=== PATIENT | male | born 1980 | race American Indian/Alaskan Native ===

== ENCOUNTER 2019-01-26 14:15 | Emergency (ER) | payer OTHER ==
[2019-01-26 14:43] VITALS: BP 122/85
--- NOTE | 2019-01-26 14:47 | Emergency Department Report ---
Chief Complaint: Urogenital-Male Stated Complaint: UNABLE TO URINATE/LOWER BACK PAIN Time Seen by Provider: 01/26/19 14:43 - HPI History of Present Illness: This is a 39 y.o. male that presents to the ER with low back pain and urinary retention for 1-2 days. Also complains of low back pain. - Exam Vital Signs: Vital Signs 01/26/19 14:41 Temperature 98.8 F Pulse Rate 77 Respiratory 22 Rate Blood Pressure 122/85 O2 Sat by Pulse 95 Oximetry MSE screening note: Focused history and physical exam performed. Due to findings the following was ordered: Urinalysis ACC for further evaluation. ED Disposition for MSE Condition: Stable
[2019-01-26] MEDS ORDERED: PYRIDIUM PO ONE (15:32)
[2019-01-26] MEDS ORDERED: IBUPROFEN PO ONE (15:32)
[2019-01-26 16:31] LABS: Bacteria,Urine 1+ /HPF (Negative); Bilirubin,Urine NEG (Negative); Blood,Urine SM (Negative); Color,Urine Yellow (Yellow); Mucus,Urine FEW /HPF; Protein,Urine <15 mg/dL mg/dL (Negative); Urobilinogen,Urine < 2.0 mg/dL (<2.0)
[2019-01-26] MEDS ORDERED: TORADOL IV ONE (16:44)
[2019-01-26] MEDS ORDERED: MORPHINE IV ONE (16:44)
[2019-01-26 17:12] LABS: Basophils # (Auto) 0.1 K/mm3 (0.0-0.1); Basophils % (Auto) 0.9 % (0.0-1.8); Eosinophils # (Auto) 0.2 K/mm3 (0.0-0.4); Eosinophils % (Auto) 1.8 % (0.0-4.3); Hemoglobin 15.8 gm/dl (11.8-15.2); Lymphocytes # (Auto) 2.6 K/mm3 (1.2-5.4); Lymphocytes % (Auto) 23.6 % (13.4-35.0); Mean Corpuscular HGB Conc 35 % (32-34); Mean Corpuscular Volume 96 fl (84-94); Monocytes # (Auto) 1.1 K/mm3 (0.0-0.8); Monocytes % (Auto) 10.2 % (0.0-7.3); Platelet Count 299 K/mm3 (140-440); Red Blood Count 4.81 M/mm3 (3.65-5.03); Red Cell Distribution Width 13.3 % (13.2-15.2)
--- NOTE | 2019-01-26 17:23 | XRay Report ---
PROCEDURE: XR ABDOMEN 1V AP TECHNIQUE: Frontal views of the abdomen and pelvis HISTORY: constipation COMPARISONS: None FINDINGS: The bowel gas pattern is nonobstructive with air in nondistended loops of small bowel and colon. There is a mild to moderate amount of stool in the ascending and proximal transverse colon. There is no evidence of pneumoperitoneum nor organomegaly. The bony structures are notable for degenerative change of the hip joints bilaterally, left greater t clemente right with joint space loss, subchondral sclerosis and subchondral cyst formation on the left. IMPRESSION: 1. No plain film evidence of an acute intra-abdominal process. If there is a clinical concern of an acute intra-abdominal process, CT imaging may be helpful. 2. Mild to moderate amount of stool in the ascending and proximal transverse colon. 3. Degenerative change hip joints bilaterally. This document is electronically signed by Adilia Angelo MD., January 26 2019 05:21:21 PM ET
[2019-01-26 17:24] LABS: Calcium 9.6 mg/dL (8.4-10.2)
--- NOTE | 2019-01-26 18:00 | Cat Scan Report ---
PROCEDURE: CT ABDOMEN PELVIS WO CON TECHNIQUE: Axial helical imaging through the abdomen and pelvis with sagittal and coronal reformatte d images obtained. HISTORY: suprapubic pain hematuria COMPARISONS: None FINDINGS: The lung bases are without infiltrate, pneumothorax or pleural fluid collection. The heart appears to be normal size. The liver, spleen, pancreas and adrenal glands are unremarkable. The gallbladder is mildly distended and unremarkable. The right kidney is unremarkable. There is mild to moderate left hydronephrosis with left hydroureter. There is an approximately 2.5 mm x 2.4 mm x 2.7 mm obstructing stone in the region of the left ureterovesicular junction. The urinary bladder is mildly distended and otherwise unremarkable. The bowel is normal caliber. The appendix is normal caliber. There is a mild to moderate amount of stool in the ascending and transverse colon. There is no evidence of pneumoperitoneum or free fluid. The abdominal aorta is normal caliber. There are mildly prominent bilateral inguinal and external iliac chain lymph nodes. These are nonspec ific in appearance but are most likely inflammatory in nature. The prostate gland appears to be upper limits of normal size to mildly enlarged and contains calcific ations. The bony structures are notable for degenerative change of the hip joints bilaterally, left greater t clemente right, with marked loss of joint space on the left with subchondral sclerosis and cyst formation. IMPRESSION: 1. Mild to moderate left hydronephrosis with left hydroureter with approximately 2.7 mm obstructing s tone in the region of the left ureterovesicular junction. 2. Degenerative change hip joints bilaterally, left greater than right. This document is electronically signed by Adilia Angelo MD., January 26 2019 05:58:43 PM ET
--- NOTE | 2019-01-26 18:55 | Emergency Department Report ---
ED General Adult HPI - General Chief complaint: Urogenital-Male Stated complaint: UNABLE TO URINATE/LOWER BACK PAIN Time Seen by Provider: 01/26/19 14:43 Source: patient Mode of arrival: Ambulatory Limitations: No Limitations - History of Present Illness Initial comments: Patient is a 39-year-old black male who is presenting with some suprapubic discomfort and lower back pain for the past 2 days. Patient states he is had decreased urination and that timeframe. Patient also has sensation that he has to have a bowel movement and urinate but is unable to. Patient states he has pain that is 10 out of 10 in severity. Patient denies any nausea vomiting fevers chills at this time. Severity scale (0 -10): 0 - Related Data Previous Rx's Medication Instructions Recorded Last Taken Type Clindamycin [Clindamycin CAP] 300 mg PO Q6H #40 capsule 08/11/18 Unknown Rx traMADol [Ultram] 50 mg PO Q6HR PRN #12 tablet 08/11/18 Unknown Rx Ciprofloxacin HCl [Cipro] 500 mg PO BID #14 tablet 01/26/19 Unknown Rx HYDROcodone/ACETAMINOPHEN 1 each PO Q6HR PRN #12 tablet 01/26/19 Unknown Rx [Hydrocodone-Acetamin 5-325 mg] Ibuprofen [Ibu] 800 mg PO Q8H PRN #20 tablet 01/26/19 Unknown Rx Ondansetron [Zofran Odt] 4 mg PO Q8HR #10 tab.rapdis 01/26/19 Unknown Rx Tamsulosin HCl [Flomax] 0.4 mg PO HS #10 cap.er.24h 01/26/19 Unknown Rx metFORMIN [Glucophage] 500 mg PO BID #60 tablet 01/26/19 Unknown Rx Allergies Allergy/AdvReac Type Severity Reaction Status Date / Time No Known Allergies Allergy Verified 01/26/19 14:39 ED Review of Systems ROS: Stated complaint: UNABLE TO URINATE/LOWER BACK PAIN Other details as noted in HPI Comment: All other systems reviewed and negative ED Past Medical Hx - Past Medical History Previous Medical History?: No - Surgical History Past Surgical History?: No Additional Surgical History: L shoulder - Social History Smoking Status: Never Smoker Substance Use Type: None - Medications Home Medications: Home Medications Medication Instructions Recorded Confirmed Last Taken Type Clindamycin [Clindamycin CAP] 300 mg PO Q6H #40 capsule 08/11/18 Unknown Rx traMADol [Ultram] 50 mg PO Q6HR PRN #12 tablet 08/11/18 Unknown Rx Ciprofloxacin HCl [Cipro] 500 mg PO BID #14 tablet 01/26/19 Unknown Rx HYDROcodone/ACETAMINOPHEN 1 each PO Q6HR PRN #12 tablet 01/26/19 Unknown Rx [Hydrocodone-Acetamin 5-325 mg] Ibuprofen [Ibu] 800 mg PO Q8H PRN #20 tablet 01/26/19 Unknown Rx Ondansetron [Zofran Odt] 4 mg PO Q8HR #10 tab.rapdis 01/26/19 Unknown Rx Tamsulosin HCl [Flomax] 0.4 mg PO HS #10 cap.er.24h 01/26/19 Unknown Rx metFORMIN [Glucophage] 500 mg PO BID #60 tablet 01/26/19 Unknown Rx ED Physical Exam - General Limitations: No Limitations General appearance: alert, in no apparent distress - Head Head exam: Present: atraumatic, normocephalic - Eye Eye exam: Present: normal appearance - ENT ENT exam: Present: mucous membranes moist - Neck Neck exam: Present: normal inspection - Respiratory Respiratory exam: Present: normal lung sounds bilaterally. Absent: respiratory distress, wheezes, rales, rhonchi - Cardiovascular Cardiovascular Exam: Present: regular rate, normal rhythm. Absent: systolic murmur, diastolic murmur, rubs, gallop - GI/Abdominal GI/Abdominal exam: Present: soft, tenderness (suprapubic), normal bowel sounds. Absent: distended, guarding, rebound, rigid - Rectal Rectal exam: Present: deferred - Extremities Exam Extremities exam: Present: normal inspection - Back Exam Back exam: Present: normal inspection - Neurological Exam Neurological exam: Present: alert, oriented X3 - Psychiatric Psychiatric exam: Present: normal affect, normal mood - Skin Skin exam: Present: warm, dry, intact, normal color. Absent: rash ED Course Vital Signs 01/26/19 14:41 Temperature 98.8 F Pulse Rate 77 Respiratory 22 Rate Blood Pressure 122/85 O2 Sat by Pulse 95 Oximetry ED Medical Decision Making - Lab Data Result diagrams: 01/26/19 17:01 01/26/19 17:01 Lab Results 01/26/19 01/26/19 01/26/19 Range/Units 16:20 17:01 17:01 WBC 10.9 (4.5-11.0) K/mm3 RBC 4.81 (3.65-5.03) M/mm3 Hgb 15.8 H (11.8-15.2) gm/dl Hct 46.0 H (35.5-45.6) % MCV 96 H (84-94) fl MCH 33 H (28-32) pg MCHC 35 H (32-34) % RDW 13.3 (13.2-15.2) % Plt Count 299 (140-440) K/mm3 Lymph % (Auto) 23.6 (13.4-35.0) % Boundary % (Auto) 10.2 H (0.0-7.3) % Eos % (Auto) 1.8 (0.0-4.3) % Baso % (Auto) 0.9 (0.0-1.8) % Lymph # 2.6 (1.2-5.4) K/mm3 Boundary # 1.1 H (0.0-0.8) K/mm3 Eos # 0.2 (0.0-0.4) K/mm3 Baso # 0.1 (0.0-0.1) K/mm3 Seg Neutrophils % 63.5 (40.0-70.0) % Seg Neutrophils # 7.0 (1.8-7.7) K/mm3 Sodium 140 (137-145) mmol/L Potassium 4.3 (3.6-5.0) mmol/L Chloride 102.0 (98-107) mmol/L Carbon Dioxide 27 (22-30) mmol/L Anion Gap 15 mmol/L BUN 11 (9-20) mg/dL Creatinine 1.6 H (0.8-1.5) mg/dL Estimated GFR 58 ml/min BUN/Creatinine Ratio 7 % Glucose 252 H (75-100) mg/dL Calcium 9.6 (8.4-10.2) mg/dL Urine Color Yellow (Yellow) Urine Turbidity Clear (Clear) Urine pH 5.0 (5.0-7.0) Ur Specific [place] 1.039 H (1.003-1.030) Urine Protein <15 mg/dl (Negative) mg/dL Urine Glucose (UA) >=500 (Negative) mg/dL Urine Ketones Neg (Negative) mg/dL Urine Blood Sm (Negative) Urine Nitrite Neg (Negative) Urine Bilirubin Neg (Negative) Urine Urobilinogen < 2.0 (<2.0) mg/dL Ur Leukocyte Esterase Neg (Negative) Urine WBC (Auto) 3.0 (0.0-6.0) /HPF Urine RBC (Auto) 13.0 (0.0-6.0) /HPF U Epithel Cells (Auto) < 1.0 (0-13.0) /HPF Urine Bacteria (Auto) 1+ (Negative) /HPF Urine Mucus Few /HPF - Radiology Data [facility] [address] [place] [address] Cat Scan Report Signed Patient: TALIA PAYAN MR# : [id number] : 1980 Acct:[id number] Age/Sex: 39 / M ADM Date: 01/26/19 Loc: ED Attending Dr: Ordering Physician: DELON PENALOZA MD Date of Service: 01/26/19 Procedure(s): CT abdomen pelvis wo con Accession Number(s): [id number] cc: DELON PENALOZA MD PROCEDURE: CT ABDOMEN PELVIS WO CON TECHNIQUE: Axial helical imaging through the abdomen and pelvis with sagittal an d coronal reformatted images obtained. HISTORY: suprapubic pain hematuria COMPARISONS: None FINDINGS: The lung bases are without infiltrate, pneumothorax or pleural fluid collection. The heart appears to be normal size. The liver, spleen, pancreas and adrenal glands are unremarkable. The gallbladder is mildly distended and unremarkable. The right kidney is unremarkable. There is mild to moderate left hydronephrosis with left hydroureter. There is an approximately 2.5 mm x 2.4 mm x 2.7 mm obstructing stone in the region of the left ureterovesicular junction. The urinary bladder is mildly distended and otherwise unremarkable. The bowel is normal caliber. The appendix is normal caliber. There is a mild to moderate amount of stool in the ascending and transverse colon. There is no evidence of pneumoperitoneum or free fluid. The abdominal aorta is normal caliber. There are mildly prominent bilateral inguinal and external iliac chain lymph nodes. These are nonspecific in appearance but are most likely inflammatory in nature. The prostate gland appears to be upper limits of normal size to mildly enlarged and contains calcifications. The bony structures are notable for degenerative change of the hip joints bilaterally, left greater than right, with marked loss of joint space on the left with subchondral sclerosis and cyst formation. IMPRESSION: 1. Mild to moderate left hydronephrosis with left hydroureter with approximately 2.7 mm obstructing stone in the region of the left ureterovesicular junction. 2. Degenerative change hip joints bilaterally, left greater than right. This document is electronically signed by Adilia Angelo MD., January 26 2019 05:58:43 PM ET Transcribed By: ED Dictated By: ADILIA ANGELO MD Electronically Authenticated By: ADILIA ANGELO MD Signed Date/Time: 01/26/19 1800 DD/ [id number] - Medical Decision Making Patient was able to get a small amount of urine to pass. I did do a postvoid residual ultrasound which showed a very small decompressed bladder. Patient does not appear to have a large urinary retention at this time. Patient's urinalysis showed hematuria therefore CT of the abdomen and pelvis to rule out kidney stone was performed. Patient does have a small kidney stone at the UVJ on the left. Patient was given meds for pain control and he feels much improved. Patient discharged home. Also addressed the patient's mild hypoglycemia. Patient started on metformin will be given primary care for follow-up. Critical care attestation.: If time is entered above; I have spent that time in minutes in the direct care of this critically ill patient, excluding procedure time. ED Disposition Clinical Impression: Hyperglycemia Hydronephrosis Qualifiers: Hydronephrosis type: with ureteral calculous obstruction Qualified Code(s): N13.2 - Hydronephrosis with renal and ureteral calculous obstruction Disposition: - TO HOME OR SELFCARE Is pt being admited?: No Does the pt Need Aspirin: No Condition: Stable Instructions: Kidney Stones (ED), Diabetic Hyperglycemia (ED) Referrals: CHRISTIANO SINGLETON MD [Staff Physician] - 3-5 Days KALEY BAINS MD [Staff Physician] - 3-5 Days Time of Disposition: 18:55
== END 2019-01-26 19:24 | disposition home or self-care (01) ==
LOC: ED 14:15
DX: N13.30 Unspecified hydronephrosis (principal); R73.9 Hyperglycemia, unspecified
CPT/HCPCS: 36415; 74018; 74176; 80048; 81001; 85025; 96374; 96375; 99284; J1885; J2270